=== PATIENT | female | born 1975 ===

== ENCOUNTER 2018-08-15 14:02 | Emergency (ER) | payer BC ==
[2018-08-15 14:09] VITALS: BP 131/82; PULSE 91; RESP 18; TEMP 97.7; O2SAT 99
--- NOTE | 2018-08-15 14:28 | C.PDOC ---
History Of Present Illness 43 y/o female pt presents to the ER c/o left ankle pain and swelling when she slipped in the snow at 7 am. Pt reports she twisted his ankle inward. Pt denies any other injuries including head, LOC and sensory changes in the ankle. Time Seen by Provider: 08/15/18 14:09 Chief Complaint (Nursing): Lower Extremity Problem/Injury History Per: Patient History/Exam Limitations: no limitations Onset/Duration Of Symptoms: Hrs Current Symptoms Are (Timing): Still Present - Ankle/Foot Description Of Injury: Twisted Past Medical History Reviewed: Historical Data, Nursing Documentation, Vital Signs Vital Signs: Last Vital Signs Temp 97.7 F 08/15/18 14:06 Pulse 91 H 08/15/18 14:06 Resp 18 08/15/18 14:06 BP 131/82 08/15/18 14:06 Pulse Ox 99 08/15/18 14:06 Family History: States: No Known Family Hx - Social History Hx Alcohol Use: Yes Hx Substance Use: No - Immunization History Hx Tetanus Toxoid Vaccination: No Hx Influenza Vaccination: No Hx Pneumococcal Vaccination: No Review Of Systems Musculoskeletal: Positive for: Other (twisted left ankle; no head injury ) Neurological: Negative for: Other (LOC; sensory changes in left ankle ) Physical Exam - Physical Exam Appears: Non-toxic, No Acute Distress Skin: Warm, Dry Head: Atraumatic, Normacephalic, No Tenderness, No Swelling, No Abrasion, No Laceration Cardiovascular: Rhythm Regular Respiratory: Normal Breath Sounds Extremity: No Normal ROM (decreased), Tenderness, No Pedal Edema, No Calf Tenderness, Capillary Refill (<2 sec), No Deformity, Swelling (moderate at lateral malleolus ) Pulses: Left Dorsalis Pedis: Normal Neurological/Psych: Oriented x3, Normal Speech, Normal Cognition, Normal Sensation ED Course And Treatment O2 Sat by Pulse Oximetry: 99 (RA) Pulse Ox Interpretation: Normal - Other Rad left ankle X-Ray: Read By Radiologist Interpretation: Accession No. : [id number]. Patient Name / ID : [id number] AVILES / [id number]. Exam Date : 08/15/2018 14:26:39 ( Approved ). Study Comment : Sex / Age : F / 43Y. Creator : Ruddy Powell MD. Dictator : Ruddy Powell MD. Power Mule Operator : Audio Visual Manager : Ruddy Powell MD. Approver2 : Report Date : 08/15/2018 15:17:22. My Comment : . Date of service: 08/15/2018. PROCEDURE: Left Ankle Radiographs. HISTORY: left ankle inversion injury r/o fx. COMPARISON: None available. FINDINGS: BONES: No evidence of acute displaced fracture nor dislocation. The osseous structures appear grossly intact. Moderate soft tissue swelling seen overlying the lateral malleolus. Small enthesophyte seen arising from the plantar surface of the calcaneus. JOINTS: Normal. No osteoarthritis. Ankle mortise maintained. Talar dome intact. SOFT TISSUES: As above. Suspect small joint effusion as well. OTHER FINDINGS: None. IMPRESSION: No acute fractures. Moderate soft tissue swelling over the lateral malleolus and suspected small joint effusion. Progress Note: Plans: -- left ankle XR. -- tylenol. -- zoë wrap, air cast and crutches was given to pt and pt was instructed to f/u with orthropedics or podiatry Disposition Counseled Patient/Family Regarding: Studies Performed, Diagnosis, Need For Followup, Rx Given - Disposition Referrals: [facility] [Outside] Podiatry Clinic [Outside] Norberto Lennon III, MD [Staff Provider] - Disposition: HOME/ ROUTINE Disposition Time: 14:50 Condition: STABLE Additional Instructions: FOLLOW UP WITH ORTHOPEDICS OR PODIATRY WITHIN 1 WEEK USE PAIN MEDICATION NEEDED ELEVATE FOOT/ANKLE MUCH POSSIBLE RETURN TO ER IF SYMPTOMS WORSEN Prescriptions: Naproxen 375 mg PO BID PRN #20 tablet PRN Reason: pain Instructions: Ankle Sprain (DC) Forms: icix (Tongan) Print Language: VENEZUELAN - Clinical Impression Clinical Impression: Left ankle sprain - Scribe Statement The provider has reviewed the documentation as recorded by the Scribe Cifuentes Do Provider Attestation: All medical record entries made by the Scribe were at my direction and personally dictated by me. I have reviewed the chart and agree that the record accurately reflects my personal performance of the history, physical exam, m edical decision making, and the department course for this patient. I have also personally directed, reviewed, and agree with the discharge instructions and disposition.
--- NOTE | 2018-08-15 15:21 | RAD ---
Date of service: 08/15/2018 PROCEDURE: Left Ankle Radiographs. HISTORY: left ankle inversion injury r/o fx COMPARISON: None available. FINDINGS: BONES: No evidence of acute displaced fracture nor dislocation. The osseous structures appear grossly intact. Moderate soft tissue swelling seen overlying the lateral malleolus. Small enthesophyte seen arising from the plantar surface of the calcaneus JOINTS: Normal. No osteoarthritis. Ankle mortise maintained. Talar dome intact SOFT TISSUES: As above. Suspect small joint effusion as well. OTHER FINDINGS: None. IMPRESSION: No acute fractures. Moderate soft tissue swelling over the lateral malleolus and suspected small joint effusion.
== END 2018-08-15 15:12 | disposition home or self-care (01) ==
LOC: C.ER 14:02
DX: S93.402A Sprain of unspecified ligament of left ankle, initial encounter (principal); W00.0XXA Fall on same level due to ice and snow, initial encounter